=== PATIENT | male | born 1960 | race American Indian/Alaskan Native ===

== ENCOUNTER 2021-08-24 11:44 | Emergency (ER) | payer MEDICARE ==
[2021-08-24 11:57] VITALS: BP 148/96
--- NOTE | 2021-08-24 14:43 | Emergency Department Report ---
ED General Adult HPI - General Chief complaint: Extremity Injury, Lower Stated complaint: BILATERAL KNEE X 10 YEARS/BEHAVIOR Time Seen by Provider: 08/24/21 13:35 Source: EMS Mode of arrival: Stretcher Limitations: No Limitations - History of Present Illness Initial comments: The patient presents to the emergency department via EMS with a chief complaint of knee pain. Patient states history reason for coming to the emergency department today is secondary to arguments that are happening at the [facility]. Patient states today it was just too much and was given on his nurse. Patient states his knee pain is old and has been present for longer than 10 years. Patient states he does not want anything done for his knees. He actually states he would like to go home. He denies chest pain, shortness breath, or headache. -: unknown Location: lower extremity Severity scale (0 -10): 3 Quality: aching Consistency: constant Improves with: rest Worsens with: movement Associated Symptoms: denies other symptoms Treatments Prior to Arrival: none - Related Data Allergies Allergy/AdvReac Type Severity Reaction Status Date / Time No Known Allergies Allergy Verified 08/24/21 11:57 ED Review of Systems ROS: Stated complaint: BILATERAL KNEE X 10 YEARS/BEHAVIOR Other details as noted in HPI Comment: All other systems reviewed and negative Constitutional: denies: chills, fever Eyes: denies: eye pain, eye discharge, vision change ENT: denies: ear pain, throat pain Respiratory: denies: cough, shortness of breath, wheezing Cardiovascular: denies: chest pain, palpitations Endocrine: no symptoms reported Gastrointestinal: denies: abdominal pain, nausea, diarrhea Genitourinary: denies: urgency, dysuria Musculoskeletal: other (bilateral knee pain). denies: back pain, joint swelling, arthralgia Skin: denies: rash, lesions Neurological: denies: headache, weakness, paresthesias Psychiatric: denies: anxiety, depression Hematological/Lymphatic: denies: easy bleeding, easy bruising ED Physical Exam - General Limitations: No Limitations General appearance: alert, in no apparent distress - Head Head exam: Present: atraumatic, normocephalic - Eye Eye exam: Present: normal appearance, PERRL, EOMI - ENT ENT exam: Present: mucous membranes moist - Neck Neck exam: Present: normal inspection - Respiratory Respiratory exam: Present: normal lung sounds bilaterally. Absent: respiratory distress - Cardiovascular Cardiovascular Exam: Present: regular rate, normal rhythm. Absent: systolic murmur, diastolic murmur, rubs, gallop - GI/Abdominal GI/Abdominal exam: Present: soft, normal bowel sounds. Absent: distended, tenderness - Rectal Rectal exam: Present: deferred - Extremities Exam Extremities exam: Present: normal inspection - Back Exam Back exam: Present: normal inspection - Neurological Exam Neurological exam: Present: alert, oriented X3, CN II-XII intact. Absent: motor sensory deficit - Psychiatric Psychiatric exam: Present: normal affect, normal mood - Skin Skin exam: Present: warm, dry, intact, normal color. Absent: rash ED Course Vital Signs 08/24/21 11:54 Temperature 98 F Pulse Rate 106 H Respiratory 18 Rate Blood Pressure 148/96 [Left] O2 Sat by Pulse 96 Oximetry ED Medical Decision Making - Lab Data Patient states that his main reason for coming to the hospital today was due to arguments at the [facility]. He states his knee pain has been present for longer than 10 years and he states if he weighed 300 pounds her knees will hurt too. Patient denies chest pain or shortness of breath as mentioned prior. Patient declines work-up. Patient denies imaging of the knees. He states he wants to go back to the [facility]. Critical care attestation.: If time is entered above; I have spent that time in minutes in the direct care of this critically ill patient, excluding procedure time. ED Disposition Clinical Impression: Knee pain Disposition: HOME / SELF CARE / HOMELESS Is pt being admited?: No Does the pt Need Aspirin: No Condition: Stable Instructions: Acute Knee Pain, Adult Additional Instructions: Return if worse Referrals: PRIMARY CAREMD [Primary Care Provider] - 3-5 Days WILBUR TAVERA MD [Staff Physician] - 3-5 Days Time of Disposition: 14:41
== END 2021-08-24 16:37 | disposition home or self-care (01) ==
LOC: ED 11:44
DX: M25.562 Pain in left knee (principal); M25.561 Pain in right knee
CPT/HCPCS: 99283

== ENCOUNTER 2021-08-25 20:14 | Emergency (ER) | payer MEDICARE ==
[2021-08-25] MEDS ORDERED: ZIPRASIDONE MESYLATE 20 MG VIAL IM ONE ×2 (20:56→20:59)
--- NOTE | 2021-08-25 20:57 | Emergency Department Report ---
ED Psych HPI - General Chief Complaint: Altered Mental Status Stated Complaint: MH EVAL/AMS Time Seen by Provider: 08/25/21 20:47 Source: patient, EMS Mode of arrival: Stretcher Limitations: Altered Mental Status - History of Present Illness Initial Comments: Patient is a 61-year-old male who presents emergency room for aggressive behavior and agitation and combativeness. Patient became physical with the staff at his personal alf and the staff called the police. The patient then became physical with the police and the police called EMS to bring the patient to the hospital for mental evaluation. Patient was agitated with EMS and was given Ativan. The patient became a little more cooperative and the patient came to the hospital for an evaluation. Patient states he was mad because the people at his personal alf were making him upset. Patient denies hallucinations. Patient denies suicidal and homicidal ideations. Patient denies recent travel. Patient denies recent international travel. Patient denies exposure to the novel coronavirus. Patient denies sick contacts. Patient denies fever and chills. Patient denies cough. Patient denies diarrhea. Patient denies coming in contact with anybody with symptoms of the novel coronavirus. MD Complaint: altered mental status -: Sudden History of same: Yes Quality: constant Improves With: none Worsens With: none Associated Symptoms: denies other symptoms. denies: confusion, headache, shortness of breath, nausea, vomiting, syncope, insomnia Treatments Prior to Arrival: placed on mental he - Related Data Allergies Allergy/AdvReac Type Severity Reaction Status Date / Time No Known Allergies Allergy Verified 08/24/21 16:23 ED Review of Systems ROS: Stated complaint: MH EVAL/AMS Other details as noted in HPI Constitutional: denies: chills, fever Eyes: denies: eye pain, eye discharge, vision change ENT: denies: ear pain, throat pain Respiratory: denies: cough, shortness of breath, wheezing Cardiovascular: denies: chest pain, palpitations Endocrine: no symptoms reported Gastrointestinal: denies: abdominal pain, nausea, diarrhea Genitourinary: denies: urgency, dysuria Musculoskeletal: denies: back pain, joint swelling, arthralgia Skin: denies: rash, lesions Neurological: denies: headache, weakness, paresthesias Psychiatric: as per HPI. denies: anxiety, depression Hematological/Lymphatic: denies: easy bleeding, easy bruising ED Past Medical Hx - Past Medical History Previous Medical History?: Yes Hx Psychiatric Treatment: Yes - Surgical History Past Surgical History?: No - Family History Family history: no significant - Social History Smoking Status: Current Every Day Smoker Substance Use Type: Marijuana ED Physical Exam - General General appearance: alert, in no apparent distress - Head Head exam: Present: atraumatic, normocephalic - Eye Eye exam: Present: normal appearance - ENT ENT exam: Present: mucous membranes moist - Neck Neck exam: Present: normal inspection - Respiratory Respiratory exam: Present: normal lung sounds bilaterally. Absent: respiratory distress - Cardiovascular Cardiovascular Exam: Present: regular rate, normal rhythm. Absent: systolic murmur, diastolic murmur, rubs, gallop - GI/Abdominal GI/Abdominal exam: Present: soft, normal bowel sounds - Rectal Rectal exam: Present: deferred - Extremities Exam Extremities exam: Present: normal inspection - Back Exam Back exam: Present: normal inspection - Neurological Exam Neurological exam: Present: alert, oriented X3 - Psychiatric Psychiatric exam: Present: agitated, anxious - Expanded Psychiatric Exam Expanded Focused psych exam: Present: pressured speech, psychomotor agitation, restlessness, flight of ideas, loose associations - Skin Skin exam: Present: warm, dry, intact, normal color. Absent: rash ED Course Vital Signs 08/25/21 20:47 Temperature 98 F Pulse Rate 84 Respiratory 18 Rate Blood Pressure 182/85 O2 Sat by Pulse 100 Oximetry - Reevaluation(s) Reevaluation #1: Patient is verbally aggressive and is unstable in his behaviors. Patient will be given Geodon. 08/25/21 20:59 Reevaluation #2: Patient is medically cleared. Patient is more calm at this time. Patient will remain in the ER as an ER hold until patient is cleared by psychiatry. Patient placed on a 1013. Patient's final disposition will come from our psychiatry team. 08/25/21 23:01 ED Medical Decision Making - Lab Data Result diagrams: 08/25/21 21:29 08/25/21 21:29 - Medical Decision Making Patient is a 61-year-old male who presents emergency room for aggressive behavior and agitation. Patient was violent towards the staff at his personal- alf and they called the police. Patient was then violent and acting out with the police and the police then called EMS to bring the patient to the hospital for mental evaluation. Patient on evaluation found to have findings consistent with acute psychosis. Patient had labs done. Patient's labs are essentially unremarkable save for mildly elevated creatinine. Patient is medically cleared for a psychiatric evaluation. Patient placed on a 1013 and a ER hold. Patient remained in the ER as an ER hold until the patient is cleared by our psychiatry team. Patient's final disposition will come from our psychiatry team. - Differential Diagnosis Acute psychosis, agitation, aggressive behavior. Critical care attestation.: If time is entered above; I have spent that time in minutes in the direct care of this critically ill patient, excluding procedure time. ED Disposition Clinical Impression: Medical clearance for psychiatric admission, Acute psychosis, Aggressive behavior Disposition: [facility] Is pt being admited?: No Does the pt Need Aspirin: No Condition: Stable Referrals: WILBUR TAVERA MD [Primary Care Provider] - 2-3 Days Time of Disposition: 23:35
[2021-08-25 21:39] LABS: Basophils # (Auto) 0.2 K/mm3 (0.0-0.1); Basophils % (Auto) 1.6 % (0.0-1.8); Eosinophils # (Auto) 0.3 K/mm3 (0.0-0.4); Eosinophils % (Auto) 2.7 % (0.0-4.3); Hematocrit 39.8 % (35.5-45.6); Hemoglobin 12.9 gm/dl (11.8-15.2); Lymphocytes % (Auto) 18.6 % (13.4-35.0); Mean Corpuscular HGB Conc 32 % (32-34); Mean Corpuscular Volume 78 fl (84-94); Monocytes # (Auto) 1.1 K/mm3 (0.0-0.8); Monocytes % (Auto) 10.4 % (0.0-7.3); Platelet Count 277 K/mm3 (140-440); Red Blood Count 5.12 M/mm3 (3.65-5.03); Red Cell Distribution Width 17.4 % (13.2-15.2)
[2021-08-25] MEDS ORDERED: LORazepam 2 MG/ML VIAL IM ONE (21:40)
[2021-08-25 22:01] LABS: Alanine Aminotransferase 41 units/L (7-56); Albumin 3.4 g/dL (3.9-5); BUN/Creatinine Ratio 13; Blood Urea Nitrogen 18 mg/dL (9-20); Calcium 9.2 mg/dL (8.4-10.2); Hemolysis Index 10
[2021-08-26] MEDS ORDERED: diphenhydrAMINE 50 MG/ML VIAL IM ONE (08:23)
[2021-08-26] MEDS ORDERED: ZIPRASIDONE MESYLATE 20 MG VIAL IM ONE ×2 (08:24→08:25)
--- NOTE | 2021-08-26 12:34 | Consultation ---
History of Present Illness - Reason for Consult Consult date: 08/26/21 Reason for consult: Mental health evaluation - History of Present Psychiatric Illness HPI: Patient is a 61-year-old male who presents emergency room for aggressive behavior and agitation and combativeness. Patient became physical with the staff at his personal long term and the staff called the police. The patient then became physical with the police and the police called EMS to bring the patient to the hospital for mental evaluation. Patient was agitated with EMS and was given Ativan. The patient became a little more cooperative and the patient came to the hospital for an evaluation. Patient states he was mad because the people at his personal long term were making him upset. Patient denies hallucinations. Patient denies suicidal and homicidal ideations. The patient is loud, agitated and verbally aggressive. He is uncooperative during assessment session. The patient was given Geodon 20mg IM and Benardryl 50mg IM for agitation. PAST PSYCHIATRIC HISTORY: PAST MEDICAL HISTORY: None reported or document Family Psychiatric History: None reported or documented SOCIAL HISTORY REVIEW OF SYSTEMS MENTAL STATUS EXAMINATION Diagnoses: Treatment Plan 1013 Haldol 5mg po BID Trazodone 50mg po QHS Medical: per primary Sitter: defer to primary Disposition: recommend acute psychiatric inpatient treatment Will follow. Thanks Case staffed with Dr. Mora Medications and Allergies Medications and Allergies Medications and Allergies Allergies Allergy/AdvReac Type Severity Reaction Status Date / Time No Known Allergies Allergy Verified 08/24/21 16:23 Mental Status Exam - Vital signs Last Vital Signs Temp 98 F 08/25/21 20:47 Pulse 91 H 08/26/21 06:00 Resp 18 08/25/21 20:47 BP 106/55 08/26/21 06:00 Pulse Ox 98 08/26/21 09:12 Results Result Diagrams: 08/25/21 21:29 08/25/21 21:29 Abnormal lab results 08/25/21 08/25/21 08/25/21 Range/Units 21:29 21:29 21:29 RBC 5.12 H (3.65-5.03) M/mm3 MCV 78 L (84-94) fl MCH 25 L (28-32) pg RDW 17.4 H (13.2-15.2) % Aurora % (Auto) 10.4 H (0.0-7.3) % [place] # (Auto) 1.1 H (0.0-0.8) K/mm3 Baso # (Auto) 0.2 H (0.0-0.1) K/mm3 Carbon Dioxide 21 L (22-30) mmol/L Creatinine 1.4 H (0.8-1.3) mg/dL Glucose 126 H (75-100) mg/dL Albumin 3.4 L (3.9-5) g/dL Salicylates < 0.3 L (2.8-20.0) mg/dL Acetaminophen (10.0-30.0) ug/mL 08/25/21 Range/Units 21:29 RBC (3.65-5.03) M/mm3 MCV (84-94) fl MCH (28-32) pg RDW (13.2-15.2) % Aurora % (Auto) (0.0-7.3) % Aurora # (Auto) (0.0-0.8) K/mm3 Baso # (Auto) (0.0-0.1) K/mm3 Carbon Dioxide (22-30) mmol/L Creatinine (0.8-1.3) mg/dL Glucose (75-100) mg/dL Albumin (3.9-5) g/dL Salicylates (2.8-20.0) mg/dL Acetaminophen 5.0 L (10.0-30.0) ug/mL All other labs normal.
--- NOTE | 2021-08-26 12:54 | Emergency Department Report ---
Blank Doc - Documentation Documentation: S: No events reported overnight O: Vital Signs - 8 hr 08/26/21 08/26/21 08/26/21 05:00 05:16 05:30 Pulse Rate 92 H 91 H 93 H Blood Pressure 106/55 106/55 106/55 O2 Sat by Pulse Oximetry 08/26/21 08/26/21 08/26/21 05:46 06:00 09:12 Pulse Rate 94 H 91 H Blood Pressure 106/55 106/55 O2 Sat by Pulse 98 Oximetry A: Combative behavior P: 1013/awaiting inpatient psych
--- NOTE | 2021-08-27 10:35 | Consultation ---
History of Present Illness - Reason for Consult Consult date: 08/27/21 Reason for consult: Psychosis - History of Present Psychiatric Illness The patient was seen this morning. He continues to presents with disorganized thinking. The patient becomes loud with profanity intermittently . REVIEW OF SYSTEMS MENTAL STATUS EXAMINATION Diagnoses: Treatment Plan 1013 Haldol 5mg po BID Trazodone 50mg po QHS Medical: per primary Sitter: defer to primary Disposition: recommend acute psychiatric inpatient treatment Will follow. Thanks Case staffed with Dr. Mora Medications and Allergies Medications and Allergies Allergies Allergy/AdvReac Type Severity Reaction Status Date / Time No Known Allergies Allergy Verified 08/24/21 16:23 Mental Status Exam - Vital signs Last Vital Signs Temp 98.8 F 08/26/21 22:43 Pulse 90 08/26/21 22:43 Resp 16 08/26/21 22:43 BP 135/82 08/26/21 22:43 Pulse Ox 95 08/26/21 22:43 Results Result Diagrams: 08/25/21 21:29 08/25/21 21:29 All other labs normal.
--- NOTE | 2021-08-27 12:31 | Emergency Department Report ---
Blank Doc - Documentation Documentation: S: No events reported overnight O: Vital Signs - 8 hr 08/27/21 11:05 Temperature 99 F Pulse Rate 109 H Respiratory 14 Rate Blood Pressure 141/95 [Right] O2 Sat by Pulse 96 Oximetry A: Psychosis P: 1013/awaiting inpatient psych
--- NOTE | 2021-08-28 10:50 | Progress Note ---
Subjective - Reason for Consult Consult date: 08/28/21 Reason for consult: Mental health evaluation - Chief Complaint Chief complaint: The patient was seen this morning. He is loud and continues to presents with disorganized thinking. REVIEW OF SYSTEMS MENTAL STATUS EXAMINATION Diagnoses: Treatment Plan 1013 Haldol 10mg po BID Trazodone 50mg po QHS Medical: per primary Sitter: defer to primary Disposition: recommend acute psychiatric inpatient treatment Will follow. Thanks Case staffed with Dr. Mora Mental Status Exam - Vital signs Last Vital Signs Temp 99.0 F 08/27/21 20:35 Pulse 88 08/27/21 21:00 Resp 18 08/27/21 21:00 BP 156/78 08/27/21 21:00 Pulse Ox 100 08/27/21 21:00
[2021-08-28] MEDS ORDERED: ZIPRASIDONE MESYLATE 20 MG VIAL IM PRN (11:30)
[2021-08-28] MEDS: HALOPERIDOL 5 MG TAB PO SCH ×2 (13:08→22:14)
[2021-08-28] MEDS: traZODone 50 MG TAB PO SCH (22:14)
[2021-08-29 04:31] LABS: Bilirubin,Urine NEG (Negative); Blood,Urine NEG (Negative); Color,Urine Yellow (Yellow); Mucus,Urine FEW /HPF; Protein,Urine <15 mg/dL mg/dL (Negative); RBC,Urine < 1.0 /HPF (0.0-6.0); WBC,Urine < 1.0 /HPF (0.0-6.0)
[2021-08-29 04:39] LABS: Amphetamine Screen,Urine PRESUMPTIVE NEGATIVE; Benzodiazepines Screen,Urine PRESUMPTIVE NEGATIVE; Cannabinoid Screen,Urine PRESUMPTIVE NEGATIVE; Cocaine Screen,Urine PRESUMPTIVE NEGATIVE; Methadone Screen,Urine PRESUMPTIVE NEGATIVE; Opiate Screen,Urine PRESUMPTIVE NEGATIVE
[2021-08-29] MEDS: HALOPERIDOL 5 MG TAB PO SCH ×2 (10:37→23:20)
[2021-08-29] MEDS ORDERED: NAPROXEN 500 MG TAB PO PRN (11:51)
--- NOTE | 2021-08-29 11:51 | Emergency Department Report ---
Blank Doc - Documentation Documentation: S: Patient complains of bilateral knee pain from his arthritis. No trauma. P atient observed ambulating without difficulty. Patient currently eating lunch in no acute distress O: Vital Signs - 8 hr 08/29/21 08/29/21 07:47 09:16 Temperature 98.4 F Pulse Rate 70 Respiratory 16 Rate Blood Pressure 130/95 [Right] O2 Sat by Pulse 98 98 Oximetry A: Psychosis P: 1013/awaiting inpatient psych, Naprosyn as needed
[2021-08-29] MEDS ORDERED: HALOPERIDOL DECANOATE 100 MG/1 ML INJ IM ONE (12:27)
--- NOTE | 2021-08-29 12:27 | Progress Note ---
Subjective - Reason for Consult Consult date: 08/29/21 Reason for consult: mental health evaluation - Chief Complaint Chief complaint: The patient was seen this morning. He states he is doing well. and ready to go home. REVIEW OF SYSTEMS MENTAL STATUS EXAMINATION Diagnoses: Treatment Plan DC 1013 Haldol Dec 50mg IM x1 Trazodone 50mg po QHS Medical: per primary Sitter: defer to primary Disposition: Do not Recommend acute psychiatric inpatient treatment. Secretarial Stenographer will provide patient with psychiatry outpatient resources. Will sign off. Thanks Case staffed with Dr. Mora Mental Status Exam - Vital signs Last Vital Signs Temp 98.4 F 08/29/21 07:47 Pulse 70 08/29/21 07:47 Resp 16 08/29/21 07:47 BP 130/95 08/29/21 07:47 Pulse Ox 98 08/29/21 09:16
[2021-08-29] MEDS: traZODone 50 MG TAB PO SCH (23:20)
[2021-08-30 09:21] VITALS: BP 136/88
[2021-08-30] MEDS: HALOPERIDOL 5 MG TAB PO SCH (09:37)
--- NOTE | 2021-08-30 14:03 | Event Note ---
Date: 08/30/21 Patient discharged in stable condition.
== END 2021-08-30 14:33 | disposition home or self-care (01) ==
LOC: EEVIPCON 20:14 → ED 20:14
DX: F29 Unspecified psychosis not due to a substance or known physiological condition (principal); Z13.30 Encounter for screening examination for mental health and behavioral disorders, unspecified; R45.6 Violent behavior; Z20.822 Contact with and (suspected) exposure to COVID-19
CPT/HCPCS: 36415; 80053; 80307; 81001; 84443; 85025; 96372; 99284; J1200; J1631; J2060; J3486; U0003; 80320; G0480